=== PATIENT | female | born 1960 | race Caucasian/White ===

== ENCOUNTER 2016-10-12 15:08 | Emergency (ER) | payer MEDICAID, OTHER ==
[~2016-10-12] VITALS: Ht 160 cm; Wt 70.0 kg
[2016-10-12 15:31] VITALS: Ht 160 cm; Wt 70.0 kg
[2016-10-12] MEDS ORDERED: KETOROLAC 30 MG INJ IM STA (16:21)
--- NOTE | 2016-10-12 16:44 | RADRPT ---
PROCEDURE: Chest x-ray CLINICAL INDICATION: Right-sided chest pain TECHNIQUE: Chest single view COMPARISON: None FINDINGS: The heart is normal in size. The pulmonary vessels are normal in caliber. The lungs are clear. Th e costophrenic angles are sharp. The visualized bony thorax is unremarkable. IMPRESSION: No acute cardiopulmonary disease. RPTAT: HH .Pedro Larsen MD, Date Time Electronically viewed and signed by .Pedro Larsen MD, on 10/12/2016 16:44 .W/
[2016-10-12] MEDS ORDERED: ALBU8.5H3 INH (16:53)
[2016-10-12] MEDS ORDERED: CARI350T PO (16:53)
[2016-10-12] MEDS ORDERED: IBUP-1542 PO (16:53)
--- NOTE | 2016-10-12 20:40 | ERD ---
ER Documentation Chief Complaint Date/Time DATE: 10/12/16 TIME: 20:39 Chief Complaint lower back pain x 1 week HPI 56-year-old man complains of 1 week of low back pain as well as right posterior costal margin pain. She states she has a history of "bronchitis" but denies asthma or COPD. She also states she has a sore throat. She denies fevers or chills, no chest pain, no vomiting or diarrhea, no recent antibiotic use ROS All systems reviewed and are negative except as per history of present illness. Medications Home Meds Active Scripts Albuterol Sulfate* (Proair HFA*) 8.5 Gm Hfa.aer.ad, 2 PUFF INH Q6H Y for COUGH, #1 INHALER Prov:NATA VERNON MD 10/12/16 Carisoprodol* (Soma*) 350 Mg Tablet, 350 MG PO TID Y for MUSCLE SPASMS, #15 TAB Prov:NATA VERNON MD 10/12/16 Ibuprofen* (Motrin*) 600 Mg Tab, 600 MG PO Q8 for PAIN AND/OR INFLAMMATION, #30 TAB Prov:NATA VERNON MD 10/12/16 Allergies Allergies: Coded Allergies: No Known Allergy (Unverified , 10/12/16) PMhx/Soc History of Surgery: Yes (RIGHT SHLDER, GALLBLADDER) Anesthesia Reaction: No Hx Neurological Disorder: No Hx Respiratory Disorders: No Hx Cardiac Disorders: Yes (HTN) Hx Psychiatric Problems: No Hx Miscellaneous Medical Probl: No Hx Alcohol Use: No Hx Substance Use: No Hx Tobacco Use: No Smoking Status: Never smoker FmHx Family History: No diabetes Physical Exam Vitals Vital Signs Date Time Temp Pulse Resp B/P Pulse Ox O2 Delivery O2 Flow Rate FiO2 10/12/16 15:31 98.1 97 18 173/89 99 Physical Exam GENERAL: Well-developed, well-nourished, well-hydrated, in no apparent distress , looks nontoxic in appearance HEENT: Moist mucous membranes, pink conjunctiva, no cervical spine tenderness or step-off deformities, no goiter, no jaundice or icterus, extraocular movements intact without pain. No submandibular induration, and no pharyngeal erythema NEURO: Alert and oriented 3, cranial nerves II through XII intact bilaterally, pupils equal round reactive to light, no focal deficits or facial asymmetry, sensation intact distally Strength 5/5 in upper and lower extremities bilaterally CARDIAC: Regular rate and rhythm, no murmurs rubs or gallops LUNGS: Clear bilaterally no wheezing crackles or stridor ABDOMEN: Soft nontender, no guarding, no rigidity, no rebound, no psoas sign no obturator sign. Normoactive bowel sounds SKIN: Warm and dry to touch, no abrasions, contusions, or hematomas, no lacerations, no ecchymosis, no target lesions, and without ulcers EXTREMITIES: No clubbing cyanosis or edema, calves are bilaterally symmetrical, no Homans sign, no popliteal cord sign. Distal pulses equal and bilateral PSYCH: Normal affect without agitation or irritability Results 24 hrs Current Medications Medications (Trade) Dose Ordered Sig/Gonzalez Route PRN Reason Start Time Stop Time Status Last Admin Dose Admin Ketorolac Tromethamine (Toradol) 30 mg ONCE STAT IM 10/12/16 16:21 10/12/16 16:23 DC 10/12/16 16:49 Procedures/MDM I administered Toradol 30 mg intramuscular injection with good pain control. One AP view of the chest performed, read by me reveals no acute infiltrates, normal mediastinum, sharp costophrenic and cardiac borders, no air under the diaphragm. Otherwise unremarkable chest x-ray. Differential diagnoses considered, included but not limited to acute coronary syndrome, pulmonary embolism, aortic dissection, abdominal aortic aneurysm, sepsis, stroke, meningitis, encephalitis, pneumonia, appendicitis, cholecystitis , bowel obstruction, pyelonephritis, nephrolithiasis, cystitis, as well as metabolic, hematologic, and electrolyte abnormalities. As well as abscess, cellulitis, fractures, and dislocations. Patient feels much better at this time, and vital signs are normal, symptoms have improved. I did give strict instructions to return to the ED if symptoms continue or worsen, patient will otherwise follow-up with primary care physician. Patient understood instructions and agreed to plan. Departure Diagnosis: Primary Impression: Back strain Encounter type: initial encounter Qualified Code: S39.012A - Back strain, initial encounter Additional Impression: Bronchitis Condition: Good Patient Instructions: Back Sprain/Strain, Bronchitis, No Antibiotic (Adult) NATA VERNON MD Oct 12, 2016 20:40
== END 2016-10-12 17:08 | disposition home or self-care (01) ==
LOC: FTE 15:08
DX: S39.012A Strain of muscle, fascia and tendon of lower back, initial encounter (principal); J40 Bronchitis, not specified as acute or chronic; I10 Essential (primary) hypertension; X58.XXXA Exposure to other specified factors, initial encounter; Y92.9 Unspecified place or not applicable
CPT/HCPCS: 71010; J1885; 96372

== ENCOUNTER 2018-01-10 16:29 | Emergency (ER) | END 2018-01-10 19:17 | disposition home or self-care (01) ==

== ENCOUNTER 2018-01-24 12:12 | Emergency (ER) | END 2018-01-24 17:26 | disposition home or self-care (01) ==

== ENCOUNTER 2018-05-01 12:20 | Emergency (ER) | END 2018-05-01 19:49 | disposition home or self-care (01) ==